=== PATIENT | male | born 1965 | race Caucasian/White ===

== ENCOUNTER 2024-03-06 09:45 | Day surgery (SDC) | payer BC ==
[2024-03-06] MEDS: LACTATED RINGERS 1,000 ML IV SCH (10:21)
[2024-03-06] MEDS: IV FLUID CONTINUATION 1,000 ML IV ONE (10:22)
[2024-03-06] MEDS: LIDOCAINE 1% (10MG/ML) FOR IV START INTRADERMA PRN (10:22)
[2024-03-06 10:35] VITALS: TEMP 97
[2024-03-06] MEDS ORDERED: LIDOCAINE 2% (PF) 20 MG/ML 5 ML VIAL ONE (10:46)
[2024-03-06] MEDS ORDERED: PROPOFOL 10 MG/ML 20 ML VIAL IV ONE (10:46)
--- NOTE | 2024-03-06 10:50 | P.GSHP ---
History of Present Illness H&P Date: 03/06/24 Chief Complaint: Colon cancer screening 58-year-old male here for colonoscopy. Last colonoscopy 5 to 6 years ago. Had colon polyps at that time. No bowel complaints. History of previous sigmoid resection for diverticulitis. No family history of colon cancer. Past Medical History Past Medical History: Hyperlipidemia, Hypertension, Thyroid Disorder Additional Past Medical History / Comment(s): NAIL FUNGUS. ZEPBOUND FOR WEIGHT LOSS. History of Any Multi-Drug Resistant Organisms: None Reported Past Anesthesia/Blood Transfusion Reactions: Unable to Obtain Smoking Status: Never smoker Medications and Allergies Home Medications Medication Instructions Recorded Confirmed Type Atorvastatin [Lipitor] 20 mg PO QAM 03/02/24 03/02/24 History Levothyroxine Sodium 25 mcg PO QAM 03/02/24 03/02/24 History Losartan Potassium 100 mg PO QAM 03/02/24 03/02/24 History Terbinafine [LamISIL] 250 mg PO HS 03/02/24 03/02/24 History Tirzepatide [Zepbound] 5 mg SQ WE 03/02/24 03/02/24 History Allergies Allergy/AdvReac Type Severity Reaction Status Date / Time Penicillins AdvReac Rash/Hives Verified 03/02/24 14:21 Surgical - Exam Vital Signs Temp Pulse Resp BP Pulse Ox 97.0 F L 77 18 139/73 95 03/06/24 10:22 03/06/24 10:22 03/06/24 10:22 03/06/24 10:22 03/06/24 10:22 Physical exam: General: Well-developed, well-nourished HEENT: Normocephalic, sclerae nonicteric Abdomen: Nontender, nondistended Extremities: No edema Neuro: Alert and oriented Assessment and Plan (1) Colon cancer screening Narrative/Plan: Will proceed with colonoscopy at this time. Current Visit: Yes Status: Acute Code(s): Z12.11 - ENCOUNTER FOR SCREENING FOR MALIGNANT NEOPLASM OF COLON SNOMED Code(s): 809942023
--- NOTE | 2024-03-06 10:59 | P.PCN ---
Date of Procedure: 03/06/24 Procedure(s) Performed: PREOPERATIVE DIAGNOSIS: Colon cancer screening with history of polyps POSTOPERATIVE DIAGNOSIS: Mild diverticulosis PROCEDURE: Colonoscopy ANESTHESIA: MAC SURGEON: James Villatoro M.D. SPECIMENS: None ENDOSCOPIC PROCEDURE: The patient was placed on the endoscopy table in the left decubitus position. The Olympus colonoscope was inserted into the anus and passed under direct visualization to the ileocolonic anastomosis. The anastomosis was widely patent. From that point the scope was slowly withdrawn inspecting all surfaces carefully. There were no neoplastic inflammatory or polypoid lesions throughout the transverse, descending, sigmoid and rectum. There was mild left-sided diverticulosis noted. Digital rectal examination was normal. The patient was taken to the recovery room in stable condition per anesthesia guidelines. RECOMMENDATIONS: []
[2024-03-06 11:05] VITALS: RESP 16
[2024-03-06 11:33] VITALS: BP 110/70; PULSE 72
== END 2024-03-06 11:49 | disposition home or self-care (01) ==
LOC: ORWHC2ENDO 09:45 → EDBD 11:20 → ORWHC2ENDO 11:49
PROVIDERS: ATTEND Surgery
DX: Z12.11 Encounter for screening for malignant neoplasm of colon (principal); K57.30 Diverticulosis of large intestine without perforation or abscess without bleeding; I10 Essential (primary) hypertension; E78.5 Hyperlipidemia, unspecified; E03.9 Hypothyroidism, unspecified; E66.9 Obesity, unspecified; Z79.890 Hormone replacement therapy; Z88.0 Allergy status to penicillin; Z90.49 Acquired absence of other specified parts of digestive tract; Z79.899 Other long term (current) drug therapy
CPT/HCPCS: 45378; J2704; J2001